=== PATIENT | male | born 1995 | race Caucasian/White ===

== ENCOUNTER 2020-01-02 03:51 | Emergency (ER) | payer BC ==
[~2020-01-02] VITALS: Ht 175.3 cm; Wt 64.9 kg
[2020-01-02 04:01] VITALS: Ht 175.3 cm; Wt 64.9 kg
[2020-01-02 07:23] VITALS: BP 110/56
== END 2020-01-02 09:42 | disposition home or self-care (01) ==
LOC: ED 03:51
DX: J11.1 Influenza due to unidentified influenza virus with other respiratory manifestations (principal)

== ENCOUNTER 2020-07-19 05:42 | Emergency (ER) | payer BC ==
[~2020-07-19] VITALS: Ht 175.3 cm; Wt 65.8 kg
[2020-07-19 05:45] VITALS: Ht 175.3 cm; Wt 65.8 kg
[2020-07-19 07:01] VITALS: BP 106/55
== END 2020-07-19 07:29 | disposition home or self-care (01) ==
LOC: ED 05:42
DX: R10.9 Unspecified abdominal pain (principal); R11.2 Nausea with vomiting, unspecified; R19.7 Diarrhea, unspecified
CPT/HCPCS: J0500